=== PATIENT | female | born 1980 | race Caucasian/White ===

== ENCOUNTER 2016-08-07 06:42 | Day surgery (SDC) | payer OTHER ==
[2016-08-06 12:12] VITALS: BMI 24.9
[~2016-08-07 06:42] MED LIST: BUPIVACAINE HCL/PF 0.5% (5MG/ML) 10 ML VIAL IJ ONE; LIDOCAINE 1%/EPI 1:100000 (20 ML MULTI DOSE VIAL) INF ONE
[2016-08-07] MEDS ORDERED: BUPIVACAINE HCL/PF 0.5% (5MG/ML) 10 ML VIAL ONE (07:20)
[2016-08-07] MEDS ORDERED: LIDOCAINE 1%/EPI 1:100000 (50 ML MULTI DOSE VIAL) ONE (07:20)
[2016-08-07] MEDS ORDERED: MIDAZOLAM HCL 2 MG/2 ML SINGLE DOSE VIAL ONE (07:55)
[2016-08-07] MEDS ORDERED: SUCCINYLCHOLINE CHLORIDE 200 MG/10 ML VIAL ONE (07:56)
[2016-08-07] MEDS ORDERED: PROPOFOL 20 ML ONE ×2 (07:56→08:14)
--- NOTE | 2016-08-07 08:11 | HP ---
Satellite [facility] - Chief Complaint Chief Complaint: right knee pain - Past Medical History Allergies/Adverse Reactions: Allergies Allergy/AdvReac Type Severity Reaction Status Date / Time No Known Allergies Allergy Verified 08/07/16 07:36 ...LMP: 07/16/16 - Current Medications Current Medications: Home Medications Medication Instructions Recorded Celecoxib [Celebrex] 100 mg PO BID 08/06/16 Oxycodone HCl/Acetaminophen 1 - 2 tab PO Q6H #50 tab MDD 8 08/07/16 [Percocet 5-325 mg Tablet -] Satellite Physical Exam - Physical Examination Vital Signs: Vital Signs Period Temp Pulse Resp BP Sys/Wilson Pulse Ox Last 24 Hr 97.9 F-97.9 F 78-78 20-20 105-105/69-69 100 General Appearance: Well Nourished, Well Developed, Alert & Oriented x3 ENT: Clear Lung: Normal air movement Heart: Regular rate & rhythm Extremities: Other (right knee- + swelling, + ttp ,decr rom, + mcmurrays, + apleys, nvi MRI + mt) Neurological: Intact, Alert, Oriented Satellite Impression/Plan - Impression/Plan Impression: right knee internal derangement Operative Procedure: right knee arthroscopy Date to be Performed: 08/07/16
[2016-08-07] MEDS ORDERED: LIDOCAINE 1%/EPI 1:100000 (20 ML MULTI DOSE VIAL) INF ONE (08:18)
[2016-08-07] MEDS ORDERED: DEXAMETHASONE SOD PHOSPHATE 4 MG/1 ML VIAL ONE (08:21)
[2016-08-07] MEDS ORDERED: BUPIVACAINE HCL/PF 0.5% (5MG/ML) 10 ML VIAL IJ ONE (08:32)
--- NOTE | 2016-08-07 08:49 | OP ---
Operative Note - Note: Operative Date: 08/07/16 ([facility]) Pre-Operative Diagnosis: right knee internal derangement Operation: right knee arthroscopy with PLM (discoid LM) Post-Operative Diagnosis: Same as Pre-op Surgeon: Kenney Meléndez Anesthesiologist/CENTRAL OFFICE TROUBLE SHOOTER: Viri Claudio MD Anesthesia: General, Local Specimens Removed: shavings Estimated Blood Loss (mls): 5 Operative Report Dictated: Yes
--- NOTE | 2016-08-07 09:11 | OP ---
DATE OF OPERATION: 08/07/2016 PREOPERATIVE DIAGNOSIS: Torn right lateral meniscus. POSTOPERATIVE DIAGNOSIS: Torn right lateral meniscus. PROCEDURE: Arthroscopy, right knee, partial lateral meniscectomy (of a discoid meniscus). SURGICAL ATTENDING: Kenney Meléndez MD ANESTHESIA: General LMA. CLOSURE: 4-0 nylon. COMPLICATIONS: None. CONDITION: To recovery room in stable condition. DESCRIPTION OF PROCEDURE: Patient was taken to the operating room on August 07, 2016. General anesthesia with LMA was administered by the anesthesiologist. The right lower extremity was prepped and draped in the usual sterile fashion. Superolateral, mediolateral, infrapatellar portal sites were infiltrated with 1% Xylocaine with epinephrine. Superolateral portal was made with a 15-blade followed by a blunt trocar. The scope was placed in the lateral infrapatellar portal and up into suprapatellar pouch. Pouch was visualized to be clean. The medial and lateral gutters were visualized to be clean. The undersurface of the patella was visualized to be intact. With valgus stress on the knee, the medial compartment was entered. The medial meniscus was visualized and probed, and found to be intact. The medial femoral condyle was run and found to be intact, as was the medial tibial plateau. At 90 degrees, the ACL was visualized, probed, and found to be intact. In the figure 4 position, lateral compartment was entered. 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 The meniscus was saucerized to reconstitute a smooth stable lateral meniscus with good margins from anterior to posterior. The remainder of the meniscus had good stability. The lateral femoral condyle was run and found to be intact, as was the lateral tibial plateau. The knee was irrigated with copious amounts of irrigation. The portals were closed using 4-0 nylon. Prior to closure, 20 mL of 0.5% Marcaine was then infused into the knee for postoperative analgesia. Sterile pressure dressing was placed over the knee. Patient awakened from anesthesia and transferred to recovery in stable condition. No complications. Estimated blood loss negligible. Yordan [id number]
[2016-08-07] MEDS ORDERED: oxyCODONE HCL 5 MG TABLET PO PRN (09:21)
[2016-08-07] MEDS ORDERED: PROMETHAZINE HCL 25 MG/1 ML VIAL IVPUSH PRN (09:21)
[2016-08-07] MEDS ORDERED: ONDANSETRON 4 MG/2 ML VIAL IVPUSH PRN (09:21)
[2016-08-07] MEDS ORDERED: LACTATED RINGERS SOLUTION 1,000 ML IV SCH (09:30)
[2016-08-07] MEDS ORDERED: ONDANSETRON 4 MG/2 ML VIAL ONE (09:32)
[2016-08-07] MEDS ORDERED: oxyCODONE HCL 5 MG TABLET ONE (09:32)
[2016-08-07 09:40] VITALS: TEMP 97.8
[2016-08-07 10:48] VITALS: BP 98/50; PULSE 67
--- NOTE | 2016-08-13 15:16 | PATH ---
Surgical Pathology Report Patient Name: RUBÉN ENRIQUEZ [facility]. Rec. #: [id number] /Age/Gender: 1980 (Age: 36) / F Account: [id number] Location: [facility] SURGICAL Taken: 08/07/2016 Received: 08/07/2016 Reported: 08/13/2016 Physicians: Kennye Meléndez M.D. Specimen(s) Received LEFT KNEE SHAVINGS Clinical History Right knee tear Final Diagnosis KNEE, RIGHT, ARTHROSCOPIC SHAVINGS: FIBROCARTILAGINOUS AND FIBROSYNOVIAL TISSUE. Electronically Signed Jackie Vyas M.D. Gross Description Received in formalin, labeled "right knee shavings," is a 3.5 x 2.3 x 0.3 cm. aggregate of lorenzo-yellow soft tissue fragments. A brewery representative portion is submitted in one cassette. /08/07/201608/07/2016
== END 2016-08-07 11:20 | disposition home or self-care (01) ==
LOC: JASU-SURG 06:42
PROVIDERS: ATTEND Orthopaedic Surgery
PROC: 0SBC4ZZ Excision of Right Knee Joint, Percutaneous Endoscopic Approach (ICD-10-PCS; principal; 2016-08-07 08:00)
DX: S83.281A Other tear of lateral meniscus, current injury, right knee, initial encounter (principal); X58.XXXA Exposure to other specified factors, initial encounter; Y93.9 Activity, unspecified; Y92.9 Unspecified place or not applicable; Y99.9 Unspecified external cause status
CPT/HCPCS: 84703; 88304-TC; 94760

== ENCOUNTER 2017-06-28 09:30 | Inpatient (IN) | payer OTHER ==
--- NOTE | 2017-06-28 10:27 | HP ---
Past Medical History - Primary Care Physician PCP:: Yadira Xie - Admission Chief Complaint: 37yo P2 @ 39.3wks with irregular ctxns, no VB, no LOF, +FM History of Present Illness: 1. Flu shot this 2. Redated by 1st trimester US 3. AMA - [id number] wnl XY 4. URI in 5. No care 18-25wks 6. GDMA1 dx late in , FS most wnl for 2hr GGT PP History Source: Patient Limitations to Obtaining History: No Limitations - Past Medical History ...: 3 ...Para: 2 ...Term: 2 ...LMP: 10/02/16 ... Weeks Gestation by Dates: 38.3 ...EDC by Dates: 07/09/17 ...EDC by Sono: 07/02/17 Additional OB History: x 2. 2004 male 3.6kg. 2010 female 8lb6oz - Past Surgical History Past Surgical History: Yes: Arthrosocopy (Right knee) Hx Myomectomy: No Hx Transabdominal Cerclage: No - Smoking History Smoking history: Never smoked Have you smoked in the past 12 months: No - Alcohol/Substance Use Hx Alcohol Use: No History of Substance Use: reports: None - Social History History of Recent Travel: No Home Medications - Allergies Allergies/Adverse Reactions: Allergies Allergy/AdvReac Type Severity Reaction Status Date / Time No Known Allergies Allergy Verified 06/28/17 11:32 - Home Medications Home Medications: Ambulatory Orders Vitamins (Sjr) - 1 tab PO DAILY 06/28/17 Review of Systems - Review of Systems Constitutional: reports: No Symptoms Eyes: reports: No Symptoms HENT: reports: No Symptoms Neck: reports: No Symptoms Cardiovascular: reports: No Symptoms Respiratory: reports: No Symptoms Gastrointestinal: reports: No Symptoms Genitourinary: reports: No Symptoms Breasts: reports: No Symptoms Reported Musculoskeletal: reports: No Symptoms Integumentary: reports: No Symptoms Neurological: reports: No Symptoms Endocrine: reports: No Symptoms Hematology/Lymphatic: reports: No Symptoms Psychiatric: reports: No Symptoms Pain Intensity: 2 Physical Exam - Maternity Constitutional: Yes: Well Nourished Eyes: Yes: WNL HENT: Yes: WNL, Atraumatic, Normocephalic Neck: Yes: WNL, Supple Cardiovascular: Yes: WNL Lungs: Clear to auscultation Breast(s): Yes: WNL - Abdominal Exam/OB Fundal Height: 38 Number of Fetuses: Single Presentation: Vertex Contractions: Yes Regularity: Irregular Intensity: Mild Monitor Mode: External Heart Rate (range): 130 Heart Rate Location: Midline Category: I Accelerations: Uniform Decelerations: None - Vaginal Exam/OB Vaginal Bleediing: No Speculum Exam: No Dilatation (cm): 3 Effacement (%): 50 Amniotic Membrane Status: Intact Presentation: Vertex/Position Station: -3 - Physical Exam Musculoskeletal: Yes: WNL Extremities: Yes: WNL Edema: No Integumentary: Yes: WNL Deep Tendon Reflex Grade: Normal +2 ...Motor Strength: WNL Psychiatric: Yes: WNL, Alert, Oriented Hemorrhage Risk Assessment - Risk Factors High Risk Factors: Yes: None Risk Score: 0 Risk Level: Low Risk Assessment/Plan 37yo P2 @ 39.3 in early labor with GDMA1, nl FS Admit to L&D Send labs , FS Q shift, IV Fluids Augment with Pitocin Epidural for pain relief as needed MF Status reassuring
[2017-06-28] MEDS ORDERED: ELECTROLYTE-148 SOLN 1,000 ML IV SCH (10:30)
[2017-06-28] MEDS ORDERED: OXYTOCIN 30 UNITS in 0.9% NS 30 UNIT/500 ML INFUS.BAG IVPB SCH (10:45)
[2017-06-28 11:26] VITALS: BMI 30.4
[2017-06-28 11:26] LABS: INR 0.96 (0.82-1.09); PROTHROMBIN TIME (PATIENT) 10.8 SEC (9.7-13.0)
[2017-06-28 11:28] LABS: BASO % 0.3 % (0-2.0); EOS % 0.5 % (0-4.5); HEMOGLOBIN 11.1 GM/dL (10.7-15.3); MCHC 33.6 g/dl (32.0-36.0); MEAN CELL VOLUME 92.3 fl (80-96); MEAN PLT VOLUME 9.3 fl (7.5-11.1); MONO % 7.6 % (3.8-10.2); NEUT % 72.6 % (42.8-82.8); PLATELET COUNT 198 K/MM3 (134-434); RBC 3.58 M/mm3 (3.60-5.2); RDW 13.5 % (11.6-15.6); WHITE BLOOD COUNT 10.2 K/mm3 (4.0-10.0)
[2017-06-28 11:29] LABS: ACTIVATED PTT 22.8 SECONDS (26.9-34.4)
[2017-06-28 11:40] LABS: ANION GAP 8 (8-16); BLOOD UREA NITROGEN 8 mg/dL (7-18); CALCIUM 8.1 mg/dL (8.5-10.1); CHLORIDE 109 mmol/L (98-107); CO2 23 mmol/L (21-32); CREATININE 0.6 mg/dL (0.55-1.02); GLUCOSE,RANDOM 83 mg/dL (74-106); POTASSIUM 3.8 mmol/L (3.5-5.1); SODIUM 140 mmol/L (136-145)
[2017-06-28] MEDS ORDERED: FENTANYL/BUPIVACAINE/NS/PF - PCEA - 50 ML DISP.SYRIN EP ONE (19:48)
[2017-06-28] MEDS ORDERED: NALOXONE HCL 0.4 MG/ML VIAL IVPUSH PRN (20:09)
[2017-06-28] MEDS ORDERED: FENTANYL/BUPIVACAINE/NS/PF - PCEA - 50 ML DISP.SYRIN EP SCH (20:15)
--- NOTE | 2017-06-28 21:46 | PN ---
Progress Note, Labor Vaginal Exam #1 Labor Exam Date: 06/28/17 Labor Exam Time: 21:00 Heart Rate (range): 140, + accels, no Decels Dilatation: 5cm Effacement (%): 50% Amniotic Membrane Status: Intact Presentation: Vertex/Position Station: -3 Remarks: AROM for augmentation Now comfortable with epidural MF status reasuring
--- NOTE | 2017-06-28 23:27 | PN ---
Progress Note, Labor Vaginal Exam #2 Labor Exam Date: 06/28/17 Labor Exam Time: 23:00 Heart Rate (range): 140's + accels, no decels Dilatation: 8 Effacement (%): 90 Amniotic Membrane Status: Ruptured Presentation: Vertex/Position Station: 0 Remarks: + scalp stimulation Active labor MF status reassuring anticipate
[2017-06-28] MEDS ORDERED: LIDOCAINE HCL 1% PRESERVATIVE FREE - 30ML VIAL ONE (23:46)
[2017-06-28] MEDS ORDERED: OXYTOCIN 20 UNITS in 0.9% NS 20 UNIT/1,000 ML INFUS.BAG IV ONE (23:46)
--- NOTE | 2017-06-29 00:54 | PN ---
Delivery - Delivery Vaginal Delivery: No Problems Type of Anesthesia: Epidural Episiotomy/Laceration: 2nd degree EBL (cc): 300 Delivery, Single - Stages of Labor Date 1st Stage Initiatied: 06/28/17 Time 1st Stage Initiated: 21:00 Date 2nd Stage Initiated: 06/29/17 Time 2nd Stage Initiated: 00:00 Date of Delivery: 06/29/17 Time of Delivery: 00:20 Date Placenta Delivered: 06/29/17 Time Placenta Delivered: 00:24 Placenta: Yes: Spontaneous - Condition of Hypnotherapist/[place] Lacer Present: No Infant Gender: Male Weight: 7 lb 8 oz Position: Right, OA - 1 Minute Total Score: 9 5 Minutes Total Score: 9 - [place] Feeding Plan Initial Plan: Exclusive throughout hospitalization Benefits of Exclusively reinforced: Yes Remarks - Remarks Remarks: Cord around the neck once, reduced
[2017-06-29] MEDS ORDERED: BISACODYL 10 MG SUPP.RECT RC PRN (00:55)
[2017-06-29] MEDS ORDERED: BENZOCAINE 28 GM HEMORRHOIDAL OINTMENT TP PRN (00:55)
[2017-06-29] MEDS ORDERED: METHYLERGONOVINE MALEATE 0.2 MG/1 ML AMP IM PRN (00:55)
[2017-06-29] MEDS ORDERED: BENZOCAINE 20% 57 GM BOTTLE TP PRN (00:55)
[2017-06-29] MEDS ORDERED: IBUPROFEN 600 MG TABLET (FP) PO PRN (00:55)
[2017-06-29] MEDS ORDERED: ACETAMINOPHEN 325 MG TABLET (FP) PO PRN (00:55)
[2017-06-29] MEDS ORDERED: WITCH HAZEL 50% (TUCKS) 40 PAD/JAR PAD TP PRN (00:55)
[2017-06-29 00:57] LABS: ARTERIAL BLOOD GAS BASE EXCESS -4.1 meq/l (-2-2); ARTERIAL BLOOD GAS pH 7.38 (7.35-7.45)
[2017-06-29] MEDS ORDERED: D5W-LR W/ 20 UNITS OXYTOCIN 20 UNIT/1,000 ML INFUS.BAG IV SCH (01:00)
[2017-06-29 01:10] LABS: VENOUS PC02 34.3 mmHg (38-52); VENOUS PH 7.4 (7.32-7.42); VENOUS PO2 30.6 mmHg (28-48)
[2017-06-29 01:11] LABS: ARTERIAL BLD GAS O2 SATURATION 71.4 % (90-98.9); ARTERIAL BLOOD GAS PO2 31.5 mmHg (80-100)
[2017-06-29] MEDS: FERROUS SO4 325 MG TABLET (FP) PO SCH ×2 (08:13→17:01)
[2017-06-29] MEDS: PRENATAL VITAMINS W/ FOLIC ACID TABLET (FP) PO SCH (10:06)
[2017-06-30] MEDS: FERROUS SO4 325 MG TABLET (FP) PO SCH ×2 (08:36→18:38)
[2017-06-30 09:37] LABS: BASO % 0.4 % (0-2.0); EOS % 0.5 % (0-4.5); HEMATOCRIT 31.1 % (32.4-45.2); HEMOGLOBIN 10.4 GM/dL (10.7-15.3); LYMPH % 16.5 % (8-40); MCH 31.2 pg (25.7-33.7); MCHC 33.5 g/dl (32.0-36.0); MEAN CELL VOLUME 93.3 fl (80-96); MEAN PLT VOLUME 9.2 fl (7.5-11.1); MONO % 5.4 % (3.8-10.2); NEUT % 77.2 % (42.8-82.8); PLATELET COUNT 186 K/MM3 (134-434); RBC 3.33 M/mm3 (3.60-5.2); RDW 13.7 % (11.6-15.6); WHITE BLOOD COUNT 10.2 K/mm3 (4.0-10.0)
[2017-06-30] MEDS: PRENATAL VITAMINS W/ FOLIC ACID TABLET (FP) PO SCH (11:17)
[2017-06-30] MEDS ORDERED: SENNOSIDES/DOCUSATE COMBO (SENNA PLUS) TABLET (UD) PO PRN (22:00)
[2017-07-01] MEDS: FERROUS SO4 325 MG TABLET (FP) PO SCH (08:24)
--- NOTE | 2017-07-01 08:42 | PN ---
Post Progress Note - Subjective Subjective: Patient without acute complaints. Reports tolerating oral intake without nausea or vomiting. Ambulating without dizziness. Denies fevers or chills. Pain well controlled with oral pain medication. without difficulty. Passing flatus. Post Day: 2 Type of Delivery: Vital Signs: Vital Signs Temperature 98.5 F 06/30/17 21:00 Pulse Rate 83 06/30/17 21:00 Respiratory Rate 20 06/30/17 21:00 Blood Pressure 113/54 06/30/17 21:00 O2 Sat by Pulse Oximetry (%) 100 06/29/17 00:15 Breast Exam: Yes: Engorged Uterus: Yes: Fundus Firm, Fundus below umbilicus Abdomen/GI: Yes: Abdomen soft, Passing flatus, Tolerating PO. No: Abdominal Distention, Tender Lochia: Yes: Serosa Lochia, amount: Small Extremities: Yes: Calves non-tender. No: Edema Activity: Ambulating - Labs Labs: CBC WBC 10.2 K/mm3 (4.0-10.0) H 06/30/17 09:25 RBC 3.33 M/mm3 (3.60-5.2) L 06/30/17 09:25 Hgb 10.4 GM/dL (10.7-15.3) L 06/30/17 09:25 Hct 31.1 % (32.4-45.2) L 06/30/17 09:25 MCV 93.3 fl (80-96) 06/30/17 09:25 MCH 31.2 pg (25.7-33.7) 06/30/17 09:25 MCHC 33.5 g/dl (32.0-36.0) 06/30/17 09:25 RDW 13.7 % (11.6-15.6) 06/30/17 09:25 Plt Count 186 K/MM3 (134-434) 06/30/17 09:25 MPV 9.2 fl (7.5-11.1) 06/30/17 09:25 Neutrophils % 77.2 % (42.8-82.8) 06/30/17 09:25 Lymphocytes % 16.5 % (8-40) 06/30/17 09:25 Monocytes % 5.4 % (3.8-10.2) 06/30/17 09:25 Eosinophils % 0.5 % (0-4.5) 06/30/17 09:25 Basophils % 0.4 % (0-2.0) 06/30/17 09:25 Nucleated RBC % 0 % (0-0) 06/30/17 09:25 Assessment/Plan 37 yo PPD # 2 s/p , afebrile, vital signs stable, doing well 1. Patient stable for discharge home today. 2. Patient encouraged to contact MD for: - Severe pain not controlled by oral pain medication - Fevers or chills - Nausea or vomiting, intolerance of oral intake 3. Patient to follow up in office in 4-6 weeks for visit
[2017-07-01] MEDS: PRENATAL VITAMINS W/ FOLIC ACID TABLET (FP) PO SCH (10:18)
[2017-07-01 12:23] VITALS: BP 118/68; PULSE 68; TEMP 98.8
== END 2017-07-01 12:35 | disposition home or self-care (01) | DRG 775 ==
LOC: JLDR 09:30 → J3W 06-29 02:08
PROVIDERS: ADMIT Obstetrics & Gynecology; ATTEND Obstetrics & Gynecology
PROC: 10E0XZZ Delivery of Products of Conception, External Approach (ICD-10-PCS; principal; 2017-06-29)
PROC: 0KQM0ZZ Repair Perineum Muscle, Open Approach (ICD-10-PCS; 2017-06-29)
DX: O24.429 Gestational diabetes mellitus in childbirth, unspecified control (principal); Z37.0 Single live birth; O70.1 Second degree perineal laceration during delivery; O69.81X0 Labor and delivery complicated by cord around neck, without compression, not applicable or unspecified; Z3A.39 39 weeks gestation of pregnancy
CPT/HCPCS: 36415; 36600; 59409; 71046-TC-FY; 80048; 82803; 82962; 85025; 85610; 85730; 86593; 86850; 86900; 86901

== ENCOUNTER 2018-01-18 09:10 | Day surgery (SDC) | payer OTHER ==
[2018-01-17 11:00] VITALS: BMI 25.7
--- NOTE | 2018-01-18 09:59 | HP ---
History & Physical Update - History History: No Change - Physical Physical: No Change - Assessment Assessment: No Change - Plan Plan: No Change (Consents signed and witnesses patient understands the procedure is permanent)
[2018-01-18] MEDS ORDERED: ONDANSETRON 4 MG/2 ML VIAL IVPUSH PRN ×2 (10:41→11:25)
[2018-01-18] MEDS ORDERED: LACTATED RINGERS SOLUTION 1,000 ML IV SCH (10:45)
[2018-01-18] MEDS ORDERED: IBUPROFEN 600 MG TABLET (FP) PO PRN (11:25)
[2018-01-18] MEDS ORDERED: oxyCODONE HCL 5 MG TABLET PO PRN (11:25)
[2018-01-18] MEDS ORDERED: IBUPROFEN 800 MG/8 ML IJ IVPB PRN (11:25)
--- NOTE | 2018-01-18 11:25 | OP ---
Operative Note - Note: Operative Date: 01/18/18 Pre-Operative Diagnosis: 37yo P3 multipara, completed child bearing Operation: Laparoscopic Bl Salpingectomy Findings: Normal abdominal and pelvic anatomy Post-Operative Diagnosis: Same as Pre-op Surgeon: Yadira Xie Anesthesiologist/BAR TENDER: Viri Claudio MD Anesthesia: General Specimens Removed: Bilateral fallopian tubes Estimated Blood Loss (mls): 1 Drains, Volume Out (mls): 500 Fluid Volume Replaced (mls): 1,400 Operative Report Dictated: Yes
[2018-01-18] MEDS ORDERED: MIDAZOLAM HCL 2 MG/2 ML SINGLE DOSE VIAL ONE (11:28)
[2018-01-18] MEDS ORDERED: PROPOFOL 20 ML ONE (11:29)
[2018-01-18] MEDS ORDERED: ROCURONIUM BROMIDE 50 MG/5 ML VIAL ONE (11:30)
[2018-01-18] MEDS ORDERED: ELECTROLYTE-148 SOLN 1,000 ML IV SCH (11:30)
[2018-01-18] MEDS ORDERED: ceFAZolin SODIUM 1 GM VIAL IVPB ONE (11:33)
[2018-01-18] MEDS ORDERED: BUPIVACAINE HCL/PF 0.25% (2.5MG/ML) 10 ML VIAL ONE (12:10)
[2018-01-18] MEDS ORDERED: BUPIVACAINE HCL/PF 0.25% (2.5MG/ML) 10 ML VIAL IJ ONE (12:30)
[2018-01-18] MEDS ORDERED: NEOSTIGMINE METHYLSULFATE 0.5 MG/ML - 10 ML MDV ONE (12:35)
[2018-01-18] MEDS ORDERED: IBUPROFEN 400 MG TABLET (FP) PO ONE (16:00)
[2018-01-18] MEDS ORDERED: IBUPROFEN 600 MG TABLET (FP) PO ONE (16:01)
[2018-01-18 19:33] VITALS: BP 90/53; PULSE 84; TEMP 99
--- NOTE | 2018-01-19 08:47 | OP ---
DATE OF OPERATION: 01/18/2018 PREOPERATIVE DIAGNOSIS: A 40-year-old para 3, multipara, completed childbearing. OPERATION: Laparoscopic bilateral salpingectomy. FINDINGS: Normal abdominal and pelvic anatomy. POSTOPERATIVE DIAGNOSIS: A 40-year-old para 3, multipara, completed childbearing. SURGEON: Yadira Xie MD ANESTHESIOLOGIST: Viri Claudio MD ANESTHESIA: General. SPECIMENS REMOVED: Bilateral fallopian tubes. DESCRIPTION OF THE OPERATIVE PROCEDURE: After ensuring informed consent and patient fully understanding the procedure is irreversible, patient was brought to the operating room where she was placed in dorsal lithotomy position. Abdomen and perineum were prepped and draped in sterile fashion. The Glynn catheter was placed sterilely. The uterine manipulator was introduced into the cervical os. The 5-mm infraumbilical incision was made with a scalpel. The Veress needle was introduced atraumatically, and the normal saline drop test was performed to assure the proper positioning of the Veress needle. The abdomen was insufflated with CO2 gas, 2 L. Optiview trocar was introduced with the laparoscope under direct visualization, and proper placement was assured. Abdominal and pelvic contents were visualized. The 5-mm right and left lower quadrant incisions were made, assuring distance from inferior epigastric artery course. Trocar was placed into each incision, acquiring 2 additional ports. Subsequently, the LigaSure was used, and a grasper, to visualize each fallopian tube and dissect it off the infundibulopelvic ligament supply and uterine attachment along the mesosalpinx. Each fallopian tube was dissected off and subsequently removed through 5-mm port and sent to Pathology. All trocars were removed under direct visualization. Excellent hemostasis was noted. The CO2 gas was expelled from the abdomen through the port. Skin was closed with 4-0 Biosyn. Estimated blood loss was 1 mL. Patient put out 500 mL of urine. Her Glynn was removed intraoperatively, and her uterine manipulator was removed intraoperatively. Patient received 1400 mL of IV fluid, and all sponge counts and instruments were correct x2. Patient was brought to the recovery room in stable condition. Yordan [id number]
--- NOTE | 2018-01-19 13:23 | PATH ---
Surgical Pathology Report Patient Name: RUBÉN ENRIQUEZ [facility]. Rec. #: [id number] /Age/Gender: 1980 (Age: 37) / F Account: [id number] Location: [facility] SURGICAL Taken: 01/18/2018 Received: 01/18/2018 Reported: 01/19/2018 Physicians: Yadira Xie M.D. Specimen(s) Received BILATERAL FALLOPIAN TUBES Clinical History Multiparity Final Diagnosis FALLOPIAN TUBES, BILATERAL, TUBAL LIGATION: FALLOPIAN TUBE WITH PARATUBAL CYST AND ENDOSALPINGOSIS (INCLUDING FULL LUMINAL PORTION AND FIMBRIATED END). UNREMARKABLE FALLOPIAN TUBE (INCLUDING FIMBRIATED END AND FULL LUMINAL PORTION). Electronically Signed Ligia Madrigal M.D. Gross Description Received in formalin labeled "bilateral fallopian tube," are 2 fimbriated fallopian tubes measuring 5.5 and 6.0 cm in length. The outer surfaces are lorenzo-pink and smooth. Sectioning reveals unremarkable lumen. Wallpaper Embosser Helper sections are submitted in 4 cassettes as follows: 1-arbitrarily designated "fallopian tube one" fimbria; 2-cross sections of arbitrarily designated "fallopian tube one"; 3-arbitrarily designated "fallopian tube two" fimbria; 4-cross sections of arbitrarily designated "fallopian tube two". 01/18/201801/18/2018
== END 2018-01-18 16:30 | disposition home or self-care (01) ==
LOC: JASU-SURG 09:10
PROVIDERS: ATTEND Obstetrics & Gynecology
PROC: 0U574ZZ Destruction of Bilateral Fallopian Tubes, Percutaneous Endoscopic Approach (ICD-10-PCS; principal; 2018-01-18 10:00)
DX: Z30.2 Encounter for sterilization (principal)
CPT/HCPCS: 84703; 88302-TC; 94760